=== PATIENT | male | born 1990 | race Caucasian/White ===

== ENCOUNTER 2017-03-31 17:32 | Emergency (ER) | payer BC ==
--- NOTE | 2017-03-31 18:35 | UC ---
General HPI - HPI Summary HPI Summary: 26 YEAR OLD MALE PRESENTS FOR REFILLS ON HIS HEADACHE MEDICATION (EFFEXOR 150 MG , DEPAKOTE 500 AND 250 MG) - History of Current Complaint Stated Complaint: MEDICATION REFILL Time Seen by Provider: 03/31/17 18:34 Hx Obtained From: Patient Onset/Duration: Sudden Onset Onset Severity: Moderate Current Severity: Moderate - Allergy/Home Medications Allergies/Adverse Reactions: Allergies Allergy/AdvReac Type Severity Reaction Status Date / Time Penicillins Allergy Unknown Rash Verified 03/31/17 18:35 Home Medications: Home Medications Almotriptan Malate [Almotriptan] 12.5 mg PO PRN 03/31/17 [History] Diclofenac Potassium [Zipsor] 50 mg PO PRN 03/31/17 [History] Divalproex DR TAB(*) [Depakote DR TAB(*)] 500 mg PO DAILY 03/31/17 [History Confirmed 03/31/17] Divalproex DR TAB(*) [Depakote DR(*)] 750 mg PO BEDTIME 03/31/17 [History Confirmed 03/31/17] Venlafaxine ER (NF) [Effexor ER (NF)] 150 mg PO DAILY 03/31/17 [History Confirmed 03/31/17] PMH/Surg Hx/FS Hx/Imm Hx Previously Healthy: Yes Review of Systems Constitutional: Negative Skin: Negative Eyes: Negative ENT: Negative Respiratory: Negative Cardiovascular: Negative Gastrointestinal: Negative Genitourinary: Negative Motor: Negative Neurovascular: Negative Musculoskeletal: Negative Neurological: Negative Psychological: Negative Is Patient Immunocompromised?: No All Other Systems Reviewed And Are Negative: Yes Physical Exam Triage Information Reviewed: Yes Vital Signs Reviewed: Yes Eye Exam: Normal ENT Exam: Normal Dental Exam: Normal Neck exam: Normal Neck: Positive: 1 Respiratory Exam: Normal Cardiovascular Exam: Normal Abdominal Exam: Normal Musculoskeletal Exam: Normal Neurological Exam: Normal Psychological Exam: Normal Skin Exam: Normal Course/Dx - Differential Dx - Multi-Symptom Provider Diagnoses: REFILL ON MIGRAINE MEDICATION Discharge - Discharge Plan Condition: Stable Disposition: HOME Prescriptions: Divalproex DR TAB(*) [Depakote DR TAB(*)] 250 mg PO BEDTIME #[address] TAB(*) [Depakote DR(*)] 500 mg PO BID #60 tab. Venlafaxine EXT RELEASE CAP* [Effexor Xr CAP*] 150 mg PO DAILY #30 cap.sr Patient Education Materials: Migraine Headache (ED) Referrals: No Primary Care Phys,NOPCP [Primary Care Provider] -
== END 2017-03-31 19:08 | disposition home or self-care (01) ==
LOC: UCCORT 17:32
DX: G43.909 Migraine, unspecified, not intractable, without status migrainosus (principal); Z76.0 Encounter for issue of repeat prescription
CPT/HCPCS: 99202; G0463

== ENCOUNTER 2017-07-03 11:10 | Emergency (ER) | payer BC ==
[2017-07-03 11:28] VITALS: BP 120/78
--- NOTE | 2017-07-03 11:49 | UC ---
Skin Complaint HPI - HPI Summary HPI Summary: Pt c/o sudden onset "itchy, bumpy" skin on end of penis. Pt has history of contact dermatitis from condoms. Pt states he used latex condom two days ago and woke the next morning with skin c/o . - History of Current Complaint Chief Complaint: UCGU Time Seen by Provider: 07/03/17 11:19 Stated Complaint: PERSONAL Hx Obtained From: Patient Onset/Duration: Sudden Onset, Lasting Days, Still Present Skin Exposure Onset/Duration: Days Ago Timing: Constant Onset Severity: Mild Current Severity: Mild Pain Intensity: 0 Location: Discrete, Other - penis, Character: Pruritus, Redness Aggravating Factor(s): Nothing Alleviating Factor(s): Unknown Associated Signs & Symptoms: Positive: Rash Related History: Possible Reaction to: Latex - Allergy/Home Medications Allergies/Adverse Reactions: Allergies Allergy/AdvReac Type Severity Reaction Status Date / Time MS Penicillins [Penicillins] Allergy Unknown Rash Verified 07/03/17 11:28 Review of Systems Constitutional: Negative Skin: Rash Eyes: Negative ENT: Negative Respiratory: Negative Cardiovascular: Negative Gastrointestinal: Negative Genitourinary: Negative Motor: Negative Neurovascular: Negative Musculoskeletal: Negative Neurological: Negative Psychological: Negative Is Patient Immunocompromised?: No All Other Systems Reviewed And Are Negative: Yes PMH/Surg Hx/FS Hx/Imm Hx Previously Healthy: Yes - Surgical History Surgical History: None - Family History Known Family History: Positive: Cardiac Disease - Social History Occupation: Employed Full-time Lives: With Family Alcohol Use: Occasionally Substance Use Type: None Smoking Status (MU): Never Smoked Tobacco Have You Smoked in the Last Year: No Physical Exam Triage Information Reviewed: Yes Appearance: Well-Appearing Vital Signs: Initial Vital Signs Temp 97.6 F 07/03/17 11:18 Pulse 71 07/03/17 11:18 Resp 14 07/03/17 11:18 BP 120/78 07/03/17 11:18 Pulse Ox 100 07/03/17 11:18 Vital Signs Reviewed: Yes Eye Exam: Normal ENT Exam: Normal Respiratory Exam: Normal Cardiovascular Exam: Normal Musculoskeletal Exam: Normal Neurological Exam: Normal Psychological Exam: Normal Skin Exam: Other - tiny, pin prick, erythematous, raised area tip of penis, no discharge, no vessicles, non tender. Course/Dx - Differential Diagnoses - Skin Complaint Differential Diagnoses: Contact Dermatitis, Local Allergic Reaction, Other - STD - Diagnoses Provider Diagnoses: contact dermatitis Discharge - Discharge Plan Condition: Stable Disposition: HOME Prescriptions: Cetirizine* [ZyrTEC 10 MG TAB*] 10 mg PO DAILY #10 tab Miconazole TOPICAL CREAM 2%* [Monistat 2%*] 1 applic TOPICAL DAILY #1 tube predniSONE TAB* [Deltasone TAB*] 20 mg PO DAILY #4 tab Patient Education Materials: Contact Dermatitis (ED) Referrals: Charlie Atkins MD [Primary Care Provider] - If Needed Additional Instructions: Please follow up with your PCP or return to clinic as needed.
== END 2017-07-03 12:09 | disposition home or self-care (01) ==
LOC: UCCORT 11:10
DX: L25.9 Unspecified contact dermatitis, unspecified cause (principal)
CPT/HCPCS: 99212; G0463

== ENCOUNTER → 2017-07-26 12:08 | Emergency (ER) | payer BC ==
[2017-07-26 13:11] VITALS: BP 136/75
--- NOTE | 2017-07-26 13:34 | UC ---
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 [facility] - History of Current Complaint Chief Complaint: UCGeneralIllness Stated Complaint: SORE THROAT Time Seen by Provider: 07/26/17 13:08 Hx Obtained From: Patient Onset/Duration: Gradual Onset, Lasting Days Severity: Mild Pain Intensity: 2 Pain Scale Used: 0-10 Numeric Cough: None Associated Signs & Symptoms: Positive: Negative - Epiglottits Risk Factors Epiglottis Risk Factors: Negative - Allergies/Home Medications Allergies/Adverse Reactions: Allergies Allergy/AdvReac Type Severity Reaction Status Date / Time Penicillins Allergy Rash Verified 07/26/17 13:05 Home Medications: Home Medications Metoclopramide TAB* [Reglan TAB*] 1 tab PO QID 07/26/17 [History Confirmed 07/26] PMH/Surg Hx/FS Hx/Imm Hx Previously Healthy: Yes - Surgical History Surgical History: None - Family History Known Family History: Positive: Cardiac Disease, Hypertension - Social History Alcohol Use: Occasionally Substance Use Type: None Smoking Status (MU): Never Smoked Tobacco Have You Smoked in the Last Year: No Review of Systems Constitutional: Negative Skin: Negative Eyes: Negative ENT: Sore Throat Respiratory: Negative Cardiovascular: Negative Gastrointestinal: Negative Genitourinary: Negative Motor: Negative Neurovascular: Negative Musculoskeletal: Negative Neurological: Negative Psychological: Negative Is Patient Immunocompromised?: No All Other Systems Reviewed And Are Negative: Yes Physical Exam Triage Information Reviewed: Yes Appearance: Well-Appearing, No Pain Distress, Well-Nourished Vital Signs: Initial Vital Signs Temp 97.5 F 07/26/17 13:08 Pulse 83 07/26/17 13:08 Resp 18 07/26/17 13:08 BP 136/75 07/26/17 13:08 Pulse Ox 100 07/26/17 13:08 Vital Signs Reviewed: Yes Eyes: Positive: Conjunctiva Clear ENT: Positive: Pharyngeal erythema, Tonsillar swelling, Tonsillar exudate Neck: Positive: Supple, Nontender, Enlarged Nodes @ - ant cervical Respiratory: Positive: Lungs clear, Normal breath sounds, No respiratory distress Cardiovascular: Positive: RRR, No Murmur Abdomen Description: Positive: Nontender, No Organomegaly, Soft Bowel Sounds: Positive: Present Musculoskeletal: Positive: ROM Intact, No Edema Neurological: Positive: Alert Psychological Exam: Normal Skin Exam: Normal Diagnostics - Laboratory Diagnostic Studies Completed/Ordered: strep (-) Throat Pain/Nasal Course/Dx - Differential Dx/Diagnosis Provider Diagnoses: tonsillitis Discharge - Sign-Out/Discharge Documenting (check all that apply): Discharge - Discharge Plan Condition: Stable Disposition: HOME Patient Education Materials: Tonsillitis (ED) Referrals: Charlie Atkins MD [Primary Care Provider] - 4 Days Additional Instructions: strep (-) test for mono pending - Billing Disposition and Condition Condition: STABLE Disposition: HOME
--- NOTE | 2017-07-27 20:59 | UC ---
- Progress Note Progress Note: Pt with neg mono No change to tx ljj 07/27/20172058 Discharge - Sign-Out/Discharge Documenting (check all that apply): Discharge - Discharge Plan Condition: Stable Disposition: HOME Prescriptions: Cephalexin CAP* [Keflex CAP*] 500 mg PO BID #20 cap Patient Education Materials: Tonsillitis (ED) Referrals: Charlie Atkins MD [Primary Care Provider] - 4 Days Additional Instructions: strep (-) test for mono pending - Billing Disposition and Condition Condition: STABLE Disposition: HOME
== END | disposition home or self-care (01) ==
LOC: UCCORT 12:08
DX: J03.90 Acute tonsillitis, unspecified (principal); Z88.0 Allergy status to penicillin
CPT/HCPCS: 36415; 86308; 87651; 99212; G0463

== ENCOUNTER 2017-08-30 10:32 | Emergency (ER) | payer BC ==
[2017-08-30 12:10] VITALS: BP 117/67
--- NOTE | 2017-09-21 10:46 | UC ---
UC General HPI - HPI Summary HPI Summary: Patient is requesting a scrip for venlafexine for migraine prevention. states he is unable to reach his pcp. has not medical c/o or concerns - History of Current Complaint Chief Complaint: UCMedRefill Stated Complaint: MEDICATION ISSUE Time Seen by Provider: 08/30/17 12:15 Hx Obtained From: Patient Current Severity: None Pain Intensity: 0 - Allergy/Home Medications Allergies/Adverse Reactions: Allergies Allergy/AdvReac Type Severity Reaction Status Date / Time Penicillins Allergy Rash Verified 08/30/17 12:10 PMH/Surg Hx/FS Hx/Imm Hx Previously Healthy: No Neurological History: Migraine - Surgical History Surgical History: None - Family History Known Family History: Positive: Cardiac Disease, Hypertension - Social History Occupation: Student Lives: Alone Alcohol Use: Occasionally Substance Use Type: None Smoking Status (MU): Never Smoked Tobacco Have You Smoked in the Last Year: No Review of Systems Constitutional: Negative Skin: Negative Eyes: Negative ENT: Negative Respiratory: Negative Cardiovascular: Negative Gastrointestinal: Negative Genitourinary: Negative Motor: Negative Neurovascular: Negative Musculoskeletal: Negative Neurological: Negative Psychological: Negative Is Patient Immunocompromised?: No All Other Systems Reviewed And Are Negative: Yes Physical Exam Triage Information Reviewed: Yes Appearance: Well-Appearing, No Pain Distress, Well-Nourished Vital Signs: Initial Vital Signs Temp 98.4 F 08/30/17 12:06 Pulse 62 08/30/17 12:06 Resp 12 08/30/17 12:06 BP 117/67 08/30/17 12:06 Pulse Ox 100 08/30/17 12:06 Vital Signs Reviewed: Yes Eye Exam: Normal Eyes: Positive: Conjunctiva Clear ENT Exam: Normal ENT: Positive: Normal ENT inspection, Hearing grossly normal. Negative: Trismus , Muffled voice, Hoarse voice Dental Exam: Normal Neck exam: Normal Neck: Positive: Supple Respiratory Exam: Normal Respiratory: Positive: No respiratory distress, No accessory muscle use Cardiovascular Exam: Normal Cardiovascular: Positive: RRR, Brisk Capillary Refill Musculoskeletal Exam: Normal Musculoskeletal: Positive: Strength Intact, ROM Intact, No Edema Neurological Exam: Normal Neurological: Positive: Alert, Muscle Tone Normal Psychological Exam: Normal Skin Exam: Normal Course/Dx - Course Course Of Treatment: will refill medication for 14 days to allow patient time to contact PCP - Differential Dx - Multi-Symptom Provider Diagnoses: Med refill Migrane prevention, migrane headaches by history Discharge - Sign-Out/Discharge Documenting (check all that apply): Discharge/Admit/Transfer - Discharge Plan Condition: Stable Disposition: HOME Prescriptions: Venlafaxine ER (NF) [Effexor ER (NF)] 150 mg PO DAILY #14 tab Patient Education Materials: Migraine Headache (ED) Referrals: Vishal Michaud MD [Medical Doctor] - As Soon As Possible Charlie Atkins MD [Primary Care Provider] - As Soon As Possible - Billing Disposition and Condition Condition: STABLE Disposition: HOME
== END 2017-08-30 12:39 | disposition home or self-care (01) ==
LOC: UCCORT 10:32
DX: G43.909 Migraine, unspecified, not intractable, without status migrainosus (principal); Z76.0 Encounter for issue of repeat prescription; Z88.0 Allergy status to penicillin
CPT/HCPCS: 99212; G0463